=== PATIENT | female | born 1945 | race Caucasian/White ===

== ENCOUNTER → 2018-06-11 | Outpatient (CLI) | payer BC, OTHER | LOC: BRMIMAGING 13:35 | PROVIDERS: ATTEND Internal Medicine | DX: Z13.820 Encounter for screening for osteoporosis (principal); M85.89 Other specified disorders of bone density and structure, multiple sites; M48.55XA Collapsed vertebra, not elsewhere classified, thoracolumbar region, initial encounter for fracture ==